=== PATIENT | female | born 2000 | race Caucasian/White ===

== ENCOUNTER 2019-09-03 10:43 | Emergency (ER) | payer OTHER ==
[~2019-09-03] VITALS: Ht 167.6 cm; Wt 64.9 kg
[~2019-09-03 10:43] MED LIST: CEFPODOXIME PR200 MG PO; KEFLEX500 MG PO; NAPROSYN500 MG PO; REGLAN10 MG PO; ULTRAM50 MG PO; ZOFRAN ODT4 MG PO; ZOFRAN4 MG PO
--- OUTSIDE RECORDS SUMMARY | 2019-09-03 10:46 | XMS ---
PreManage Notification: MILANA MUIR Security Vat Washer Events No recent Security Events currently on file CRITERIA MET - [facility] - 2 Visits in 30 Days CARE PROVIDERS Elif Wong Physician Current PA-C PHONE: Unknown Elif Wong Current PA-C PHONE: Unknown Mary Arriola Current TOOL DRESSER PHONE: Unknown Tom has no Care Guidelines for this patient. E.D. VISIT COUNT (12 MO.) 3 [facility] TOTAL 3 NOTE: Visits indicate total known visits. ED/UCC VISIT TRACKING (12 MO.) 09/03/2019 10:44 [facility] [place] TYPE: Emergency COMPLAINT: - ABD AND BACK PAIN, VOMITING 08/05/2019 10:35 [facility] [place] TYPE: Emergency COMPLAINT: - KIDNEY INFECTION DIAGNOSES: - Other nonmedicinal substance allergy status - Nicotine dependence, unspecified, uncomplicated - Allergy status to oth drug/meds/biol subst status - Allergy status to penicillin - Dorsalgia, unspecified - Allergy status to other antibiotic agents status - Other meterman (current) drug therapy 06/27/2019 17:30 [facility] [place] TYPE: Emergency COMPLAINT: - ABDOMINAL PAIN DIAGNOSES: - Allergy status to penicillin - Unspecified abdominal pain - Acute pyelonephritis - Allergy status to sulfonamides status - Allergy status to oth drug/meds/biol subst status - Allergy status to other anti-infective agents status - Allergy status to other antibiotic agents status - Other nonmedicinal substance allergy status INPATIENT VISIT TRACKING (12 MO.) No inpatient visits to display in this time frame [email or web address]
== END 2019-09-03 11:49 | disposition left against medical advice (07) ==
LOC: ED 10:43
DX: Z53.21 Procedure and treatment not carried out due to patient leaving prior to being seen by health care provider (principal)

== ENCOUNTER 2020-07-27 12:11 | Emergency (ER) | payer OTHER ==
[~2020-07-27] VITALS: Ht 167.6 cm; Wt 67.6 kg
[~2020-07-27 12:11] MED LIST changes: +EXCEDRIN EXTRA1 EAC1 PO; +IBUPROFEN800 MG PO; +NORCO 5-325 TA1 EACH PO
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
== END 2020-07-27 14:00 | disposition home or self-care (01) ==
LOC: ED 12:11
DX: R30.0 Dysuria (principal); F17.200 Nicotine dependence, unspecified, uncomplicated; Z88.0 Allergy status to penicillin; Z88.1 Allergy status to other antibiotic agents; Z88.8 Allergy status to other drugs, medicaments and biological substances; Z88.2 Allergy status to sulfonamides; Z91.048 Other nonmedicinal substance allergy status
CPT/HCPCS: 51701; 81001; 84703; 99283-25

== ENCOUNTER 2020-12-29 21:38 | Emergency (ER) | payer OTHER ==
[~2020-12-29] VITALS: Ht 167.6 cm; Wt 65.8 kg
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
== END 2020-12-29 23:15 | disposition home or self-care (01) ==
LOC: ED 21:38
DX: S06.0X0A Concussion without loss of consciousness, initial encounter (principal); S16.1XXA Strain of muscle, fascia and tendon at neck level, initial encounter; V43.62XA Car passenger injured in collision with other type car in traffic accident, initial encounter; F17.200 Nicotine dependence, unspecified, uncomplicated; Z88.0 Allergy status to penicillin; Z88.1 Allergy status to other antibiotic agents; Z88.8 Allergy status to other drugs, medicaments and biological substances; Z88.2 Allergy status to sulfonamides; Z91.048 Other nonmedicinal substance allergy status
CPT/HCPCS: 70450; 72125; 99284-25

== ENCOUNTER 2021-04-04 16:40 | Emergency (ER) | payer OTHER ==
[~2021-04-04] VITALS: Ht 167.6 cm; Wt 65.3 kg
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
== END 2021-04-04 19:15 | disposition home or self-care (01) ==
LOC: ED 16:40
DX: U07.1 COVID-19 (principal); R10.31 Right lower quadrant pain; F17.200 Nicotine dependence, unspecified, uncomplicated; Z88.0 Allergy status to penicillin; Z88.8 Allergy status to other drugs, medicaments and biological substances; Z88.1 Allergy status to other antibiotic agents; Z91.040 Latex allergy status
CPT/HCPCS: 80053; 81001; 84703; 85025; 96374; 96375; 99284-25; J1885; J2405; J7030

== ENCOUNTER 2021-05-20 08:55 | Day surgery (SDC) | payer OTHER ==
[~2021-05-20] VITALS: Ht 167.6 cm; Wt 71.4 kg
--- NOTE | ~2021-05-20 | OR ---
[facility] [address] [place] [address] Draft DATE OF OPERATION: 05/20/2021 SURGEON: Inés Perez DO PREOPERATIVE DIAGNOSES: 1. Chronic pelvic pain. 2. History of endometriosis. 3. Endometrial hyperplasia. 4. Interstitial cystitis. POSTOPERATIVE DIAGNOSES: 1. Chronic pelvic pain. 2. History of endometriosis. 3. Endometrial hyperplasia. 4. Interstitial cystitis. PROCEDURES PERFORMED: 1. Diagnostic laparoscopy. 2. Hysteroscopy, D and C. 3. Cystoscopy. EARTH SCIENCE TECHNICAL OFFICER: Maggie Welch DO. ANESTHESIA: General. ESTIMATED BLOOD LOSS: 25 mL. SPECIMEN: Endometrial curettings. FINDINGS: Normal external genitalia with normal clitoris, urethral meatus, bilateral Milo's, and Bartholin's. Normal vagina and cervix. On laparoscopy, no intra-abdominal adhesions or pelvic adhesions. No evidence of residual macroscopic endometriosis after careful evaluation of the peritoneum and all pelvic surfaces. Normal uterus, tubes, and ovaries. On hysteroscopy, normal cervical canal and uterine cavity with no endometrial polyps or fibroids. Normal bilateral tubal ostia. The endometrium appears normal. On PATIENT NAME: MILANA BLUE OPERATIVE REPORT DATE OF : [birth year] REPORT #: [id number] PHYSICIAN: INÉS PEREZ DO PCP: YAN CHRISTOPHER PA-C REPORT IS CONFIDENTIAL AND NOT TO BE RELEASED WITHOUT AUTHORIZATION [address] [place], [place] [address] Draft cystoscopy, normal bladder with excellent compliance and capacity of approximately 800 mL. No trabeculations or Hunner's ulcers noted and only a small amount of petechia noted. COMPLICATIONS: None. INDICATIONS: Ms. Blue is a 20-year-old G0 female with a complicated history of endometriosis, pelvic pain and chronic pain. She underwent diagnostic laparoscopy approximately 18 months ago and was demonstrated to have significant endometriosis burden and was sent to [facility], where she underwent extensive excision of endometrial implants. Her pain was shortly improved with surgery / control pills that she quickly returned to same symptoms of pelvic pain. She also has fibromyalgia and POTS syndrome. She was diagnosed with endometrial hyperplasia, simple without atypia and has unable to tolerate in-office endometrial biopsy. She also complains of symptoms consistent with interstitial cystitis. She is scheduled for diagnostic laparoscopy to evaluate for pelvic adhesions and residual endometriosis, hysteroscopy, D and C, and cystoscopy. Risks, benefits, and alternatives were discussed in detail with the patient. The patient understands and wishes to proceed with the procedure. TECHNIQUE: The patient was taken to the operating room where a time-out was performed to confirm correct patient, correct procedure. General anesthesia was adequately established. The patient was prepped and draped in the dorsal lithotomy position with her feet in Yellofin stirrups. ICPs were on and running. No preoperative antibiotics or heparin were indicated. A weighted speculum was placed in vagina and the anterior lip of the cervix was grasped with an Allis clamp. The cervix was gently dilated using Hegar dilators, and a Hulka uterine manipulator was placed without difficulty. The surgeon's gloves were changed and attention was turned to the abdomen. The infraumbilical subcu was infiltrated with 0.25% Marcaine with epinephrine and a 3 cm curvilinear incision was made 2 cm below the umbilicus and carried down to the fascia. The fascia was grasped with hemostats, elevated and entered sharply using Metzenbaum scissors. The fascial incision was tagged superior and inferior with 0 Vicryl stay sutures. The peritoneum was then entered bluntly and an S retractor was used to elevate the anterior abdominal wall. A Ban operative port was placed and pneumoperitoneum established. A 5 mm assist port was placed in the right lower quadrant under direct visualization without complication. Survey of the abdomen and pelvis was then performed. Normal right upper quadrant, diaphragm and appendix were noted. Detailed examination of all pelvic surfaces was performed that demonstrated evidence of prior excision of endometriosis, but no residual macroscopic endometriosis. The patient has normal uterus, tubes, and ovaries bilaterally. Normal-appearing bladder. Pneumoperitoneum was reduced. Trocars PATIENT NAME: MILANA BLUE OPERATIVE REPORT DATE OF : [birth year] REPORT #: [id number] PHYSICIAN: INÉS PEREZ DO PCP: YAN CHRISTOPHER PA-C REPORT IS CONFIDENTIAL AND NOT TO BE RELEASED WITHOUT AUTHORIZATION [address] [address] Draft were removed and the fascia was reapproximated using 0 Vicryl in a running nonlocked manner. Skin was reapproximated using 4-0 Monocryl in subcuticular stitch with excellent hemostasis and cosmesis. Attention was turned to hysteroscopy. The Hulka uterine manipulator was removed. The cervix was then dilated using Hegar dilators and an operative hysteroscope was placed in the cervical os and advanced under direct visualization of the uterine cavity. Normal cervical canal and uterine cavity were appreciated with no endometrial polyps or fibroids. Bilateral tubal ostia were appreciated and appeared normal. The MyoSure LITE device was selected and normal-appearing endometrium was sampled without difficulty. The hysteroscope was removed and attention was turned to cystoscopy. A Betts catheter was removed and a 70-degree cystoscope was placed in the urethral meatus and advanced under direct visualization into the bladder. The bladder was filled with excellent compliance noted to 800 mL. No leakage was appreciated at the urethral meatus and bladder again appears normal with no Hunner ulcers or significant trabeculation. The bladder was drained and then refilled. Scattered petechiae were noted. The bladder was drained. Betts catheter was reinserted and the patient was taken to the PACU in good and stable condition. Sponge, needle, and instrument count were correct x2 at the end of the procedure. Dr. Welch was present, participated in all portions of the procedure. Inés Perez DO JJODI/VJ /[id number] Copies: ~ PATIENT NAME: MILANA BLUE OPERATIVE REPORT DATE OF : [birth year] REPORT #: [id number] PHYSICIAN: INÉS PEREZ DO PCP: YAN CHRISTOPHER PA-C REPORT IS CONFIDENTIAL AND NOT TO BE RELEASED WITHOUT AUTHORIZATION
--- NOTE | 2021-05-20 13:52 | NUR ---
05/20/21 1352 Sheets,Sahra 1348 PT ARRIVED TO PACU ON 6L VIA MASK AND ORAL AIRWAY IN PLACE. PT ASLEEP AND VSS. RESP EVEN AND UNLABORED.
--- NOTE | 2021-05-20 14:53 | NUR ---
FEELS LIKE BLOOD VAGINALLY RUNNING DOWN LEG. CLEANED UP WITH PAMPER WIPES AND ANGUS PAD PLACED. WARMING HOSE ON PER REQUEST.
[2021-05-20] MEDS ORDERED: IBUPROFEN800 MG PO (15:28)
[2021-05-20] MEDS ORDERED: HYDROCODON-ACE1 EA10 PO (15:29)
--- NOTE | 2021-05-20 16:43 | NUR ---
1555: PATIENT ASSISTED OOB AND TO BATHROOM. SMALL AMOUNT OF BLOOD ON PAD. SMALL AMOUNT OF BLOOD IN HAT IN TOILET. GAIT STEADY TO AND FROM BATHROOM. PATIENT GETTING DRESSED. PATIENT REQUESTED DEPENDS TO WEAR HOME. 1620: DISCHARGE INSTRUCTIONS GIVEN TO PATIENT AND MOTHER. IV DC'D WNL. TIP INTACT. DRESSING APPLIED. 1640: PATIENT DISCHARGED TO HOME VIA WHEELCHAIR.
--- NOTE | 2021-05-21 12:01 | PATH ---
[facility] [address] [place], [place] [address] Signed SPECIMEN(S): A ENDOMETRIAL CURETTINGS SPECIMEN SOURCE: A. ENDOMETRIAL CURETTINGS CLINICAL HISTORY: Proliferative endometrium with focal simple hyperplasia, endometrial hyperplasia, interstitial cystitis. DX: Lap, possible excision endometriosis, hysteroscopy DC, cysto. with poss. hydrodistention. FINAL PATHOLOGIC DIAGNOSIS: Endometrium, curettage: - Proliferative endometrium. - Fragments of myometrium with no histopathologic abnormality. - Endocervical mucosa with no histopathologic abnormality. - Negative for hyperplasia or malignancy. NAL:cml:C2NR MICROSCOPIC EXAMINATION: Histologic sections of all submitted blocks are examined by light microscopy. These findings, together with the gross examination, support the pathologic diagnosis. GROSS DESCRIPTION: The specimen, labeled "HM," and designated on the requisition "endometrial curettings," is received in formalin and consists of teague-red tissue fragments with possible mucus and clot material measuring 2.5 x 2.0 x 0.5 cm in aggregate. Specimen is filtered and entirely submitted in cassette (A1). AT (under the direct supervision of a pathologist) The Gross Description was prepared using a voice recognition system. The report was reviewed for accuracy; however, sound-alike word errors, addition and/or deletions may occur. If there is any question about this report, please contact Client Services. PERFORMING LABORATORY: The technical component was performed by [facility], [address] [place] [address] (Plant Wire Chief: Tawanna Alberts MD; CLIA# [id number]). [facility] [address] [address] (CLIA# [id number]). PATIENT NAME: MILANA MUIR PATHOLOGY DATE OF : 99 REPORT #: [id number] PHYSICIAN: DONI PATHOLOGY PCP: YAN CHRISTOPHER PA-C REPORT IS CONFIDENTIAL AND NOT TO BE RELEASED WITHOUT AUTHORIZATION [address] [address] Signed Diagnostician: Violetta Kerr MD Pathologist Electronically Signed 05/21/2021 Copies: ~ PATIENT NAME: MILANA MUIR PATHOLOGY DATE OF : 99 REPORT #: [id number] PHYSICIAN: DONI MORAES PCP: YAN CHRISTOPHER PA-C REPORT IS CONFIDENTIAL AND NOT TO BE RELEASED WITHOUT AUTHORIZATION
== END 2021-05-20 16:40 | disposition home or self-care (01) ==
LOC: DS 08:55 → OPS 08:55
PROVIDERS: ATTEND Obstetrics & Gynecology
PROC: 0UJD4ZZ Inspection of Uterus and Cervix, Percutaneous Endoscopic Approach (ICD-10-PCS; principal; 2021-05-20 11:15)
PROC: 0UDB8ZZ Extraction of Endometrium, Via Natural or Artificial Opening Endoscopic (ICD-10-PCS; 2021-05-20 11:15)
DX: N85.00 Endometrial hyperplasia, unspecified (principal); G89.29 Other chronic pain; R10.2 Pelvic and perineal pain; N30.10 Interstitial cystitis (chronic) without hematuria; M79.7 Fibromyalgia; J45.909 Unspecified asthma, uncomplicated; K21.9 Gastro-esophageal reflux disease without esophagitis; F17.210 Nicotine dependence, cigarettes, uncomplicated; F12.90 Cannabis use, unspecified, uncomplicated; G43.909 Migraine, unspecified, not intractable, without status migrainosus; F41.0 Panic disorder [episodic paroxysmal anxiety]; F32.9 Major depressive disorder, single episode, unspecified; K58.9 Irritable bowel syndrome, unspecified; Z87.42 Personal history of other diseases of the female genital tract; Z88.0 Allergy status to penicillin; Z88.2 Allergy status to sulfonamides; Z88.8 Allergy status to other drugs, medicaments and biological substances; Z88.1 Allergy status to other antibiotic agents; Z91.048 Other nonmedicinal substance allergy status; Z86.79 Personal history of other diseases of the circulatory system
CPT/HCPCS: 00840; 80048; 84703; 85027; J1100; J1170; J1885; J2001; J2250; J2405; J2704; J3010; J7121

== ENCOUNTER 2021-07-09 12:11 | Emergency (ER) | payer OTHER ==
[~2021-07-09] VITALS: Ht 167.6 cm; Wt 71.7 kg
[~2021-07-09 12:11] MED LIST changes: +HYDROCODON-ACE1 EA10 PO
--- OUTSIDE RECORDS SUMMARY | 2021-07-09 12:16 | XMS ---
PreManage Notification: MILANA MUIR Security Hair Worker Events No recent Security Events currently on file CRITERIA MET - Group Notification CARE PROVIDERS YAN CHRISTOPHER Physician Flight Kitchen Manager 09/05/2019-Current PHONE: [phone] Elif Wong Physician Flight Kitchen Manager Current AURELIO PHONE: [phone] CELESTINE MARIE Dresser Tender/Cane Pusher Current JOSLYN ORTIZ PHONE: [phone] Tom has no Care Guidelines for this patient. E.D. VISIT COUNT (12 MO.) [address] [facility] TOTAL 4 NOTE: Visits indicate total known visits. ED/UCC VISIT TRACKING (12 MO.) 07/09/2021 12:13 [facility] [place] TYPE: Emergency COMPLAINT: - ABDOMINAL/KIDNEY PAIN, WEAK, N/V, HOT/COLD CHILLS 04/04/2021 16:40 [facility] [place] TYPE: Emergency COMPLAINT: - ABD PAIN, COVID+ DIAGNOSES: - Latex allergy status - Allergy status to penicillin - Nicotine dependence, unspecified, uncomplicated - COVID-19 - Allergy status to other drugs, medicaments and biological substances - Allergy status to other antibiotic agents - Right lower quadrant pain 12/29/2020 21:38 [facility] [place] TYPE: Emergency [...] - Nicotine dependence, unspecified, uncomplicated 07/27/2020 12:12 [facility] [place] TYPE: Emergency [...] visits to display in this time frame [id number]
== END 2021-07-09 15:33 | disposition home or self-care (01) ==
LOC: ED 12:11
DX: R10.9 Unspecified abdominal pain (principal); F17.200 Nicotine dependence, unspecified, uncomplicated; Z88.0 Allergy status to penicillin; Z88.2 Allergy status to sulfonamides; Z88.1 Allergy status to other antibiotic agents; Z91.048 Other nonmedicinal substance allergy status
CPT/HCPCS: 80053; 81001; 83690; 84703; 85025; 87088; 96374; 99284-25; J2405; J7030